=== PATIENT | male | born 1950 | race Hispanic/Latino ===

== ENCOUNTER 2017-02-23 19:05 | Emergency (ER) | payer OTHER ==
[~2017-02-23 19:05] MED LIST: BACL10TA PO; DIAZ5TAB4 PO; IBUP-2077 PO; LOSA100T29 PO; METO-391 PO; SIMV10TA6 PO; TRAM50TA4 PO
[2017-02-23] MEDS ORDERED: ONDANSETRON HCL 4 MG/2 ML VIAL ONE (19:24)
[2017-02-23] MEDS ORDERED: DEXAMETHASONE SOD PHOSPHATE 10MG/ML 1ML VIAL ONE (19:24)
[2017-02-23] MEDS ORDERED: SODIUM CHLORIDE 0.9% 1000ML 1,000 ML IV ONE (19:24)
[2017-02-23 20:18] LABS: BASOPHILS % (AUTO) 0.4 % (0.0-5.0); HEMATOCRIT 41.2 % (42-54); LYMPHOCYTES % (AUTO) 1.8 % (21.0-51.0); MEAN CORPUSCULAR HEMOGLOBIN 27.2 pg (27.0-33.0); MEAN CORPUSCULAR HGB CONC 33.3 g/dL (32.0-36.0); MEAN CORPUSCULAR VOLUME 81.8 fL (79-99); MONOCYTES % (AUTO) 4.7 % (3.0-13.0); NEUTROPHILS % (AUTO) 93.1 % (40.0-77.0); NUCLEATED RED BLOOD CELLS 0.1 % (0.0-0.19); PLATELET COUNT (AUTO) 170 K/uL (130-400); RED BLOOD CELL COUNT(AUTO) 5.04 MIL/uL (4.50-6.20); WHITE BLOOD COUNT (AUTO) 18.4 K/uL (4.8-10.8)
[2017-02-23 20:35] LABS: CREATININE 1.1 mg/dL (0.5-1.5); POTASSIUM 3.8 mmol/L (3.5-5.1)
[2017-02-23 20:39] LABS: ALBUMIN 3.6 g/dL (3.5-5.0); BILIRUBIN,DIRECT 0.1 mg/dL (0.0-0.3); BILIRUBIN,TOTAL 0.7 mg/dL (0.2-1.0); TOTAL PROTEIN, SERUM 7.3 g/dL (6.0-8.3)
== END 2017-02-23 23:00 | disposition home or self-care (01) ==
LOC: EDH 19:05
DX: J20.9 Acute bronchitis, unspecified (principal); E86.0 Dehydration; I10 Essential (primary) hypertension; I25.10 Atherosclerotic heart disease of native coronary artery without angina pectoris
CPT/HCPCS: 36415; 70450; 71020; 80048; 80076; 83690; 85025; 87804 ×2; 93005; 96361; 96374; 96375; 99285; J1100; J2405; J7030

== ENCOUNTER 2017-11-14 21:30 | Emergency (ER) | payer OTHER ==
[~2017-11-14 21:30] MED LIST changes: +LOSA100T20 PO; -LOSA100T29 PO
[2017-11-14 22:37] LABS: APPEARANCE,URINE Clear (CLEAR); BILIRUBIN,URINE Negative (NEGATIVE); COLOR,URINE Yellow (YELLOW); GLUCOSE, URINE (UA) Negative (NEGATIVE); KETONES,URINE Trace mg/dL (NEGATIVE); LEUKOCYTE ESTERASE ,URINE Negative (NEGATIVE); NITRATE,URINE Negative (NEGATIVE); OCCULT BLOOD,URINE Negative (NEGATIVE); PH,URINE 5.5 (5.0-8.0); PROTEIN,URINE Negative (NEGATIVE)
[2017-11-14 22:37] LABS: BASOPHILS % (AUTO) 0.4 % (0.0-5.0); EOSINOPHILS % (AUTO) 1.1 % (0.0-8.0); MEAN CORPUSCULAR HEMOGLOBIN 27.8 pg (27.0-33.0); MEAN CORPUSCULAR HGB CONC 32.7 g/dL (32.0-36.0); MONOCYTES % (AUTO) 9.6 % (3.0-13.0); NEUTROPHILS % (AUTO) 68.9 % (40.0-77.0); PLATELET COUNT (AUTO) 165 K/uL (130-400); RED BLOOD CELL COUNT(AUTO) 5.06 MIL/uL (4.50-6.20); RED CELL DISTRIBUTION WIDTH 14.8 % (11.0-15.5); WHITE BLOOD COUNT (AUTO) 11.9 K/uL (4.8-10.8)
[2017-11-14 23:04] LABS: BILIRUBIN,TOTAL 0.5 mg/dL (0.2-1.0); CREATININE 1.4 mg/dL (0.5-1.5)
[2017-11-14 23:18] LABS: POTASSIUM 4.4 mmol/L (3.5-5.1)
[2017-11-14] MEDS ORDERED: MORPHINE SULFATE 4 MG/1ML SYG ONE (23:49)
[2017-11-14] MEDS ORDERED: ONDANSETRON HCL 4 MG/2 ML VIAL ONE (23:49)
[2017-11-14] MEDS ORDERED: SODIUM CHLORIDE 0.9% 1000ML 1,000 ML IV ONE (23:49)
== END 2017-11-15 00:46 | disposition home or self-care (01) ==
LOC: EDH 21:30
DX: M54.5 Low back pain (principal); R11.0 Nausea; I25.10 Atherosclerotic heart disease of native coronary artery without angina pectoris; I10 Essential (primary) hypertension; Z87.891 Personal history of nicotine dependence; Z79.899 Other long term (current) drug therapy; Z90.49 Acquired absence of other specified parts of digestive tract
CPT/HCPCS: 36415; 74176; 80053; 81003; 83690; 85025; 96374; 96375; 99285; J2270; J2405; J7030

== ENCOUNTER 2018-04-14 09:04 | Emergency (ER) | payer OTHER ==
[~2018-04-14 09:04] MED LIST changes: -LOSA100T20 PO; +LOSA100T58 PO
[2018-04-14] MEDS ORDERED: CEFTRIAXONE SODIUM 1 GM ONE (09:26)
[2018-04-14] MEDS ORDERED: LIDOCAINE HCL-MPF 1% 2ML VIAL ONE (09:26)
[2018-04-14] MEDS ORDERED: ONDANSETRON HCL 4 MG/2 ML VIAL ONE (09:26)
[2018-04-14] MEDS ORDERED: MORPHINE SULFATE 4 MG/1ML SYG ONE (09:27)
[2018-04-14] MEDS ORDERED: SODIUM CHLORIDE 0.9% 500ML 500 ML IV ONE (09:27)
[2018-04-14 09:46] LABS: BASOPHILS % (AUTO) 0.4 % (0.0-5.0); EOSINOPHILS % (AUTO) 0.4 % (0.0-8.0); LYMPHOCYTES % (AUTO) 17.3 % (21.0-51.0); MEAN CORPUSCULAR HEMOGLOBIN 28.1 pg (27.0-33.0); MEAN CORPUSCULAR HGB CONC 33.5 g/dL (32.0-36.0); MEAN CORPUSCULAR VOLUME 83.9 fL (79-99); MONOCYTES % (AUTO) 11.5 % (3.0-13.0); NEUTROPHILS % (AUTO) 70.4 % (40.0-77.0); PLATELET COUNT (AUTO) 154 K/uL (130-400); RED BLOOD CELL COUNT(AUTO) 4.88 MIL/uL (4.50-6.20); RED CELL DISTRIBUTION WIDTH 14.5 % (11.0-15.5); WHITE BLOOD COUNT (AUTO) 10.5 K/uL (4.8-10.8)
[2018-04-14 09:58] LABS: CREATININE 1.2 mg/dL (0.5-1.5); POTASSIUM 3.8 mmol/L (3.5-5.1)
[2018-04-14 10:05] LABS: ALBUMIN 3.8 g/dL (3.5-5.0); BILIRUBIN,TOTAL 0.8 mg/dL (0.2-1.0); TOTAL PROTEIN, SERUM 7.8 g/dL (6.0-8.3)
[2018-04-14 10:16] LABS: APPEARANCE,URINE Clear (CLEAR); BILIRUBIN,URINE Small (NEGATIVE); COLOR,URINE Dark Yellow (YELLOW); GLUCOSE, URINE (UA) Negative (NEGATIVE); KETONES,URINE Negative (NEGATIVE); LEUKOCYTE ESTERASE ,URINE Trace (NEGATIVE); NITRATE,URINE Positive (NEGATIVE); OCCULT BLOOD,URINE Negative (NEGATIVE); PH,URINE 6.5 (5.0-8.0); PROTEIN,URINE Trace (NEGATIVE)
[2018-04-14 10:43] LABS: BACTERIA,URINE None Seen /HPF (None Seen); RBC,URINE None Seen /HPF (0-1); SQUAMOUS EPITHELIAL CELL,UR Rare /HPF (0-2)
[2018-04-14] MEDS ORDERED: KETOROLAC TROMETHAMINE 30MG/ML ONE (11:05)
== END 2018-04-14 11:25 | disposition home or self-care (01) ==
LOC: EDH 09:04
DX: N39.0 Urinary tract infection, site not specified (principal); I10 Essential (primary) hypertension; I25.10 Atherosclerotic heart disease of native coronary artery without angina pectoris; Z90.49 Acquired absence of other specified parts of digestive tract; Z98.890 Other specified postprocedural states; Z87.891 Personal history of nicotine dependence
CPT/HCPCS: 36415; 74176; 80053; 81001; 85025; 87088; 93005; 96372; 96374; 96375; 99284; J0696; J1885; J2270; J2405; J3490; J7040

== ENCOUNTER → 2018-05-09 | Outpatient (CLI) | payer OTHER ==
[~2018-05-09] VITALS: Ht 170.2 cm; Wt 98.4 kg
[~2018-05-09] MED LIST changes: +REGADENOSON 0.4 MG/5 ML PF SYG IVP SCH
== END | disposition home or self-care (01) ==
LOC: RAH 09:08
PROVIDERS: ATTEND Family Medicine
DX: I20.1 Angina pectoris with documented spasm (principal)
CPT/HCPCS: 78452; 93017; 96374; A9500 ×2; J2785

== ENCOUNTER 2018-08-12 21:56 | Emergency (ER) | payer OTHER ==
[~2018-08-12 21:56] MED LIST changes: -REGADENOSON 0.4 MG/5 ML PF SYG IVP SCH
[2018-08-12 23:05] LABS: BASOPHILS % (AUTO) 0.4 % (0.0-5.0); EOSINOPHILS % (AUTO) 0.5 % (0.0-8.0); HEMATOCRIT 41.5 % (42-54); LYMPHOCYTES % (AUTO) 19.6 % (21.0-51.0); MEAN CORPUSCULAR HEMOGLOBIN 29.3 pg (27.0-33.0); MEAN CORPUSCULAR HGB CONC 34.1 g/dL (32.0-36.0); MEAN CORPUSCULAR VOLUME 85.8 fL (79-99); MONOCYTES % (AUTO) 8.6 % (3.0-13.0); NEUTROPHILS % (AUTO) 70.9 % (40.0-77.0); PLATELET COUNT (AUTO) 145 K/uL (130-400); RED BLOOD CELL COUNT(AUTO) 4.84 MIL/uL (4.50-6.20); RED CELL DISTRIBUTION WIDTH 14.7 % (11.0-15.5); WHITE BLOOD COUNT (AUTO) 11.1 K/uL (4.8-10.8)
[2018-08-12 23:11] LABS: CREATININE 1.3 mg/dL (0.5-1.5); POTASSIUM 4.6 mmol/L (3.5-5.1)
[2018-08-12 23:12] LABS: INR 0.96 (0.85-1.15); PARTIAL THROMBOPLASTIN TIME 24.7 SEC (26.3-35.5); PROTHROMBIN TIME 10.1 SEC (9.6-11.6)
[2018-08-12 23:15] LABS: ALBUMIN 3.9 g/dL (3.5-5.0); BILIRUBIN,TOTAL 0.3 mg/dL (0.2-1.0); TOTAL PROTEIN, SERUM 6.9 g/dL (6.0-8.3)
[2018-08-13] MEDS ORDERED: ACETAMINOPHEN EXTRA STRENGTH 500 MG TABLET ONE (00:18)
[2018-08-13 00:31] LABS: APPEARANCE,URINE Clear (CLEAR); BILIRUBIN,URINE Negative (NEGATIVE); COLOR,URINE Yellow (YELLOW); GLUCOSE, URINE (UA) Negative (NEGATIVE); KETONES,URINE Negative (NEGATIVE); LEUKOCYTE ESTERASE ,URINE Negative (NEGATIVE); NITRATE,URINE Negative (NEGATIVE); OCCULT BLOOD,URINE Negative (NEGATIVE); PH,URINE 6.5 (5.0-8.0); PROTEIN,URINE Negative (NEGATIVE); UROBILINOGEN,URINE 0.2 mg/dL (0.2-1.0)
[2018-08-13] MEDS ORDERED: SODIUM CHLORIDE 0.9% 500ML 500 ML IV ONE (02:00)
[2018-08-13] MEDS ORDERED: LABETALOL 20 MG/4 ML DISP.SYRIN IV ONE (02:01)
== END 2018-08-13 03:47 | disposition home or self-care (01) ==
LOC: EDH 21:56
DX: G44.89 Other headache syndrome (principal); I10 Essential (primary) hypertension; I25.10 Atherosclerotic heart disease of native coronary artery without angina pectoris; Z90.49 Acquired absence of other specified parts of digestive tract
CPT/HCPCS: 36415; 70450; 80053; 81003; 82550; 84484; 85025; 85610; 85651; 85730; 93005; 96374; 99285; J7040

== ENCOUNTER 2018-12-26 22:53 | Emergency (ER) | payer OTHER ==
[2018-12-26 23:47] LABS: BASOPHILS % (AUTO) 0.9 % (0.0-5.0); EOSINOPHILS % (AUTO) 0.8 % (0.0-8.0); HEMATOCRIT 40.3 % (42-54); LYMPHOCYTES % (AUTO) 22.2 % (21.0-51.0); MEAN CORPUSCULAR HEMOGLOBIN 29.6 pg (27.0-33.0); MEAN CORPUSCULAR HGB CONC 34.5 g/dL (32.0-36.0); MEAN CORPUSCULAR VOLUME 85.6 fL (79-99); NEUTROPHILS % (AUTO) 64.1 % (40.0-77.0); PLATELET COUNT (AUTO) 119 K/uL (130-400); RED BLOOD CELL COUNT(AUTO) 4.71 MIL/uL (4.50-6.20); RED CELL DISTRIBUTION WIDTH 14.1 % (11.0-15.5); WHITE BLOOD COUNT (AUTO) 8.4 K/uL (4.8-10.8)
[2018-12-26] MEDS ORDERED: MAG HYDROX/AL HYDROX/SIMETH ES 30 ML SUSP UDCUP ONE (23:48)
[2018-12-26] MEDS ORDERED: FAMOTIDINE/PF 20 MG/2 ML VIAL IV ONE (23:48)
[2018-12-26] MEDS ORDERED: LIDOCAINE HCL 2% VISCOUS 15 ML UDCUP ONE (23:48)
[2018-12-27 00:01] LABS: CREATININE 1.4 mg/dL (0.5-1.5); POTASSIUM 3.9 mmol/L (3.5-5.1)
[2018-12-27] MEDS ORDERED: KETOROLAC TROMETHAMINE 15MG/ML ONE (00:04)
[2018-12-27] MEDS ORDERED: SODIUM CHLORIDE 0.9% 1000ML 1,000 ML IV ONE (00:05)
[2018-12-27 00:06] LABS: ALBUMIN 3.7 g/dL (3.5-5.0); BILIRUBIN,TOTAL 0.3 mg/dL (0.2-1.0); TOTAL PROTEIN, SERUM 6.8 g/dL (6.0-8.3)
== END 2018-12-26 23:36 | disposition home or self-care (01) ==
LOC: EDH 22:53
DX: R51 Headache (principal); H66.92 Otitis media, unspecified, left ear; M54.6 Pain in thoracic spine; I10 Essential (primary) hypertension; M26.629 Arthralgia of temporomandibular joint, unspecified side; I25.10 Atherosclerotic heart disease of native coronary artery without angina pectoris; Z90.49 Acquired absence of other specified parts of digestive tract; Z95.2 Presence of prosthetic heart valve; Z96.659 Presence of unspecified artificial knee joint
CPT/HCPCS: 36415; 70450; 80053; 84484; 85025; 93005; 96365; 96375; 99285; J3490; J1885; J7030

== ENCOUNTER 2019-03-03 13:53 | Emergency (ER) | payer OTHER ==
[~2019-03-03 13:53] MED LIST changes: -SIMV10TA6 PO; +SIMV10TA97 PO
[2019-03-03] MEDS ORDERED: METHYLPREDNISOLONE SOD SUCC 125MG/2ML VIAL ONE (14:26)
[2019-03-03] MEDS ORDERED: IPRATROPIUM/ALBUTEROL SULFATE 3 ML SOLUTION IH ONE (14:49)
[2019-03-04] MEDS ORDERED: LOSA50TA64 PO (18:46)
== END 2019-03-03 16:00 | disposition home or self-care (01) ==
LOC: EDH 13:53
DX: J20.9 Acute bronchitis, unspecified (principal); I25.10 Atherosclerotic heart disease of native coronary artery without angina pectoris; I10 Essential (primary) hypertension; Z90.49 Acquired absence of other specified parts of digestive tract; Z98.890 Other specified postprocedural states; Z87.891 Personal history of nicotine dependence
CPT/HCPCS: 71046; 87804 ×2; 94640; 96372; 99285; J2930

== ENCOUNTER 2019-03-04 07:42 | Observation (INO) | payer OTHER ==
[~2019-03-04] VITALS: Ht 170.2 cm; Wt 107.3 kg
[2019-03-04] MEDS ORDERED: ONDANSETRON HCL 4 MG/2 ML VIAL ONE (08:27)
[2019-03-04 08:28] LABS: BASOPHILS % (AUTO) 0.1 % (0.0-5.0); HEMATOCRIT 44.2 % (42-54); LYMPHOCYTES % (AUTO) 3.9 % (21.0-51.0); MEAN CORPUSCULAR HEMOGLOBIN 27.8 pg (27.0-33.0); MEAN CORPUSCULAR VOLUME 84.2 fL (79-99); MONOCYTES % (AUTO) 3.5 % (3.0-13.0); NEUTROPHILS % (AUTO) 91.9 % (40.0-77.0); PLATELET COUNT (AUTO) 209 K/uL (130-400); RED BLOOD CELL COUNT(AUTO) 5.25 MIL/uL (4.50-6.20); RED CELL DISTRIBUTION WIDTH 13.6 % (11.0-15.5); WHITE BLOOD COUNT (AUTO) 20.2 K/uL (4.8-10.8)
[2019-03-04] MEDS ORDERED: MORPHINE SULFATE 2 MG/ML 1ML SYG ONE (08:28)
[2019-03-04] MEDS ORDERED: LIDOCAINE 5% TOPICAL PATCH TP ONE (08:28)
[2019-03-04] MEDS ORDERED: SODIUM CHLORIDE 0.9% 500ML 500 ML IV ONE ×2 (08:30→09:25)
[2019-03-04 08:39] LABS: CREATININE 1.5 mg/dL (0.5-1.5); POTASSIUM 4.3 mmol/L (3.5-5.1)
[2019-03-04 08:43] LABS: BILIRUBIN,DIRECT 0.1 mg/dL (0.0-0.3); BILIRUBIN,TOTAL 0.5 mg/dL (0.2-1.0); TOTAL PROTEIN, SERUM 7.8 g/dL (6.0-8.3)
[2019-03-04 08:51] LABS: PARTIAL THROMBOPLASTIN TIME 25.5 SEC (26.3-35.5); PROTHROMBIN TIME 10.5 SEC (9.6-11.6)
[2019-03-04 09:15] LABS: B-TYPE NATRIURETIC PEPTIDE 90 pg/mL (0-100)
[2019-03-04] MEDS ORDERED: INSULIN HUMULIN R 100 UNIT/ML 3ML ONE (09:24)
[2019-03-04] MEDS ORDERED: SODIUM CHLORIDE 0.9% 100 ML IV ONE (10:44)
[2019-03-04] MEDS ORDERED: CEFTRIAXONE SODIUM 1 GM ONE (10:44)
[2019-03-04 11:58] LABS: APPEARANCE,URINE CLOUDY (CLEAR); BILIRUBIN,URINE NEGATIVE (NEGATIVE); COLOR,URINE YELLOW (YELLOW); GLUCOSE, URINE (UA) >=1000 mg/dL (NEGATIVE); KETONES,URINE NEGATIVE (NEGATIVE); LEUKOCYTE ESTERASE ,URINE TRACE (NEGATIVE); NITRATE,URINE NEGATIVE (NEGATIVE); OCCULT BLOOD,URINE TRACE-INTACT (NEGATIVE); PROTEIN,URINE NEGATIVE (NEGATIVE); UROBILINOGEN,URINE 0.2 mg/dL (0.2-1.0)
[2019-03-04 12:27] LABS: BACTERIA,URINE Rare /HPF (None Seen); RBC,URINE 0-1 /HPF (0-1); SQUAMOUS EPITHELIAL CELL,UR Rare /HPF (0-2); WBC,URINE >100 /HPF (0-1)
[2019-03-04] MEDS: LACTATED RINGERS 1000ML 1,000 ML IV SCH ×2 (12:54→22:54)
[2019-03-04] MEDS ORDERED: POTASSIUM CHLORIDE 20MEQ/100ML 100 ML IV PRN (13:00)
[2019-03-04] MEDS ORDERED: ACETAMINOPHEN 325 MG TAB PO PRN ×2 (13:00)
[2019-03-04] MEDS ORDERED: LIDOCAINE HCL-MPF 1% 2ML VIAL IV PRN (13:00)
[2019-03-04] MEDS ORDERED: POTASSIUM CHLORIDE 10% ELIXIR 20 MEQ/15 ML UDCUP PO PRN (13:00)
[2019-03-04] MEDS: CEFTRIAXONE SODIUM 1 GM IV SCH (13:00)
[2019-03-04] MEDS ORDERED: ONDANSETRON HCL 4 MG/2 ML VIAL IV PRN (13:00)
[2019-03-04] MEDS ORDERED: GLUCAGON 1MG KIT 1 MG ML IM PRN (13:00)
[2019-03-04] MEDS ORDERED: DEXTROSE 50%-WATER 50 ML DISP.SYRIN IV PRN (13:00)
[2019-03-04] MEDS ORDERED: GUAIFENESIN-DM 200/20 MG 10 ML PO PRN (13:00)
[2019-03-04] MEDS ORDERED: NITROGLYCERIN 0.4 MG SL TAB SL PRN (13:00)
[2019-03-04] MEDS: DOXYCYCLINE 100MG+NS 250ML 250 ML IV SCH (13:00)
[2019-03-04] MEDS ORDERED: POTASSIUM CHLORIDE 20 MEQ ERTAB PO PRN (13:00)
[2019-03-04] MEDS ORDERED: LACTULOSE 20 GM/30 ML UDCUP PO PRN (13:00)
[2019-03-04] MEDS ORDERED: BENZONATATE 100 MG CAPSULE PO SCH (14:00)
[2019-03-04] MEDS ORDERED: BENZONATATE 100 MG CAPSULE PO ONE (14:28)
[2019-03-04] MEDS ORDERED: COMPOUND PO MISCELLANEOUS 1 EACH MISC MISC PRN (15:00)
[2019-03-04 15:40] VITALS: BP 188/101
[2019-03-04] MEDS: HYDROCODONE/ACETAMINOPHEN 5/325 MG TAB PO PRN ×2 (17:48→22:17)
[2019-03-04] MEDS: INSULIN HUMULIN R 100 UNIT/ML 3ML SQ SCH ×2 (17:53→20:30)
[2019-03-04] MEDS ORDERED: LOSA50TA64 PO (18:46)
[2019-03-04] MEDS: IPRATROPIUM/ALBUTEROL SULFATE 3 ML SOLUTION IH SCH ×2 (18:58→23:40)
[2019-03-04] MEDS ORDERED: HYDRALAZINE HCL 20 MG/ML VIAL IV PRN (19:15)
[2019-03-04] MEDS ORDERED: LIDOCAINE HCL 2% VISCOUS 30 ML, MAG HYDROX/AL HYDROX/SIMETH 30 ML, BELLADONNA-PHENOBARB... PO ONE ×3 (19:15)
[2019-03-04] MEDS ORDERED: LIDOCAINE HCL 2% VISCOUS 30 ML, MAG HYDROX/AL HYDROX/SIMETH 30 ML, DICYCLOMINE HCL 20 MG PO ONE ×6 (19:30)
[2019-03-04] MEDS: [UNRECOGNIZED DRUG - MIXTURE] PO SCH ×3 (20:00)
[2019-03-04] MEDS: FAMOTIDINE 20MG TAB 20 MG TAB PO SCH (20:00)
[2019-03-04] MEDS: BENZONATATE 100 MG CAPSULE PO SCH (20:04)
[2019-03-04 20:24] VITALS: BP 138/75
[2019-03-04] MEDS ORDERED: OSELTAMIVIR PHOSPHATE 75 MG CAP PO SCH (21:00)
[2019-03-05] MEDS ORDERED: IPRATROPIUM/ALBUTEROL SULFATE 3 ML SOLUTION IH SCH
[2019-03-05] MEDS: DOXYCYCLINE 100MG+NS 250ML 250 ML IV SCH ×2 (00:01→12:47)
[2019-03-05 00:28] VITALS: BP 174/76
[2019-03-05] MEDS: LACTATED RINGERS 1000ML 1,000 ML IV SCH ×2 (04:18→18:54)
[2019-03-05 04:28] VITALS: BP 152/79
[2019-03-05 06:13] LABS: BASOPHILS % (AUTO) 0.3 % (0.0-5.0); EOSINOPHILS % (AUTO) 0.1 % (0.0-8.0); HEMATOCRIT 43.5 % (42-54); LYMPHOCYTES % (AUTO) 15.7 % (21.0-51.0); MEAN CORPUSCULAR HEMOGLOBIN 27.8 pg (27.0-33.0); MONOCYTES % (AUTO) 9.2 % (3.0-13.0); NEUTROPHILS % (AUTO) 73.8 % (40.0-77.0); PLATELET COUNT (AUTO) 189 K/uL (130-400); RED CELL DISTRIBUTION WIDTH 13.9 % (11.0-15.5); WHITE BLOOD COUNT (AUTO) 14.9 K/uL (4.8-10.8)
[2019-03-05] MEDS: INSULIN HUMULIN R 100 UNIT/ML 3ML SQ SCH ×4 (06:22→21:41)
[2019-03-05 06:27] LABS: CREATININE 1.4 mg/dL (0.5-1.5); POTASSIUM 4.9 mmol/L (3.5-5.1)
[2019-03-05] MEDS: IPRATROPIUM/ALBUTEROL SULFATE 3 ML SOLUTION IH SCH ×3 (06:33→19:01)
[2019-03-05 07:08] LABS: HEMOGLOBIN A1C 7.6 % (4.0-6.0)
[2019-03-05 07:30] VITALS: BP 165/77
[2019-03-05] MEDS ORDERED: SIMETHICONE 80 MG TAB.CHEW PO SCH (08:30)
[2019-03-05] MEDS: [UNRECOGNIZED DRUG - MIXTURE] PO SCH ×6 (08:42→21:52)
[2019-03-05] MEDS: ENOXAPARIN SODIUM 30 MG/0.3 ML SQ SCH (08:42)
[2019-03-05] MEDS: BENZONATATE 100 MG CAPSULE PO SCH ×3 (08:42→21:52)
[2019-03-05] MEDS ORDERED: MAGNESIUM CITRATE 296 ML SOLUTION PO SCH (09:30)
[2019-03-05 11:00] VITALS: BP 176/86
[2019-03-05] MEDS: CEFTRIAXONE SODIUM 1 GM IV SCH (12:47)
--- NOTE | 2019-03-05 15:47 | NUR ---
RD NOTIFICATION DX: NEW ONSET DM. DIET: 75GMCCD. LABS REVIEWED. MEDS REVIEWED. SKIN IS INTACT. PT STATED HAVING CONSTIPATION AND REQUESTED PRUNE JUICE. PO INTAKE 100% AND HAS GOOD APPETITE. RD PROVIDED DM DIET AND NUTRITION EDUCATION- PT VERBALIZED UNDERSTANDING. EDUCATION MATERIALS WERE PROVIDED. RD ADDED PRUNE JUICE TO DIET ORDER DM NUTRITION EDUCATION COMPLETED Addendum: 03/05/19 at [address] Amended: Links added.
--- NOTE | 2019-03-05 15:50 | NUR ---
NUTRITION EDUCATION COMPLETED RD PROVIDED DM DIET AND NUTRITION EDUCATION- PT VERBALIZED UNDERSTANDING. EDUCATION MATERIALS WERE PROVIDED. Addendum: 03/05/19 at [address] Amended: Links added.
[2019-03-05 16:00] VITALS: BP 164/80
[2019-03-05] MEDS ORDERED: METF500S7 PO (16:33)
[2019-03-05] MEDS ORDERED: LEVO500T2 PO (16:33)
[2019-03-05] MEDS: HYDROCODONE/ACETAMINOPHEN 5/325 MG TAB PO PRN (18:33)
[2019-03-05 20:16] VITALS: BP 144/79
[2019-03-05] MEDS: FAMOTIDINE 20MG TAB 20 MG TAB PO SCH (21:52)
[2019-03-06] MEDS: DOXYCYCLINE 100MG+NS 250ML 250 ML IV SCH ×2 (00:13→12:16)
[2019-03-06 00:16] VITALS: BP 143/80
[2019-03-06] MEDS: IPRATROPIUM/ALBUTEROL SULFATE 3 ML SOLUTION IH SCH ×2 (00:41→06:14)
[2019-03-06 04:20] VITALS: BP 162/87
[2019-03-06] MEDS: LACTATED RINGERS 1000ML 1,000 ML IV SCH ×2 (04:57→15:41)
[2019-03-06] MEDS: HYDROCODONE/ACETAMINOPHEN 5/325 MG TAB PO PRN (04:58)
[2019-03-06] MEDS: INSULIN HUMULIN R 100 UNIT/ML 3ML SQ SCH ×3 (05:15→16:12)
[2019-03-06 06:12] LABS: BASOPHILS % (AUTO) 0.5 % (0.0-5.0); EOSINOPHILS % (AUTO) 0.6 % (0.0-8.0); HEMATOCRIT 43.4 % (42-54); LYMPHOCYTES % (AUTO) 21.4 % (21.0-51.0); MEAN CORPUSCULAR HEMOGLOBIN 27.7 pg (27.0-33.0); MEAN CORPUSCULAR VOLUME 86.5 fL (79-99); MONOCYTES % (AUTO) 9.6 % (3.0-13.0); NEUTROPHILS % (AUTO) 66.3 % (40.0-77.0); PLATELET COUNT (AUTO) 172 K/uL (130-400); RED BLOOD CELL COUNT(AUTO) 5.02 MIL/uL (4.50-6.20); WHITE BLOOD COUNT (AUTO) 10.8 K/uL (4.8-10.8)
[2019-03-06 06:33] LABS: CREATININE 1.3 mg/dL (0.5-1.5); POTASSIUM 4.3 mmol/L (3.5-5.1)
[2019-03-06 08:21] VITALS: BP 152/84
[2019-03-06] MEDS ORDERED: LOSARTAN 50 MG TABLET PO SCH (09:00)
[2019-03-06] MEDS: BENZONATATE 100 MG CAPSULE PO SCH ×2 (09:25→15:39)
[2019-03-06] MEDS: ENOXAPARIN SODIUM 30 MG/0.3 ML SQ SCH (09:26)
[2019-03-06] MEDS: [UNRECOGNIZED DRUG - MIXTURE] PO SCH ×3 (09:36)
[2019-03-06] MEDS ORDERED: IPRATROPIUM 0.5 MG/2.5 ML INH IH ONE (10:44)
[2019-03-06] MEDS ORDERED: ALBUTEROL SULFATE 0.083% 2.5 MG/3 ML INH IH ONE (10:45)
[2019-03-06 11:00] VITALS: BP 171/88
--- NOTE | 2019-03-06 12:00 | NUR ---
INITIAL MET W PT, ALONE, STATES LIVES W GIRL FRIEND LAILA ON [address] WHO WILL PROVIDE TRANSPORT HOME . NO DME , NO RHIANNON, AG[place], RETIRED, DCP IS HOME SPOKE TO [place] RE PATIENT, CONFIRMS HE WILL BE GOING HOME AND THAT THEY SAW THE CT REPORT TYRELL PERERA TODAY Addendum: 03/06/19 at 1701 by DARLING REYES RN CM Amended: Links added.
[2019-03-06] MEDS: CEFTRIAXONE SODIUM 1 GM IV SCH (12:17)
[2019-03-06 16:33] VITALS: BP 152/89
--- NOTE | 2019-03-06 18:40 | NUR ---
Discharge, Patient overall discharge instruction were given including taking medications as prescribed, checking blood sugar regularly, follow up appointments. patient understood instructions, IV was removed and patient was wheeled down to private vehicle being driven by significant other. Patient left in no distress within baseline status.
== END 2019-03-06 18:57 | disposition home or self-care (01) ==
LOC: EDH 07:42 → EDHIP 10:27 → 4DH 15:19
PROVIDERS: ADMIT Internal Medicine Critical Care Medicine; ATTEND Internal Medicine Critical Care Medicine
DX: S22.39XA Fracture of one rib, unspecified side, initial encounter for closed fracture (principal); A41.9 Sepsis, unspecified organism; N39.0 Urinary tract infection, site not specified; N17.9 Acute kidney failure, unspecified; I12.9 Hypertensive chronic kidney disease with stage 1 through stage 4 chronic kidney disease, or unspecified chronic kidney disease; N18.9 Chronic kidney disease, unspecified; E78.5 Hyperlipidemia, unspecified; I25.10 Atherosclerotic heart disease of native coronary artery without angina pectoris; E66.9 Obesity, unspecified; Z90.49 Acquired absence of other specified parts of digestive tract; Z95.2 Presence of prosthetic heart valve; E11.22 Type 2 diabetes mellitus with diabetic chronic kidney disease; K76.0 Fatty (change of) liver, not elsewhere classified; Z79.899 Other long term (current) drug therapy; Z96.659 Presence of unspecified artificial knee joint; E11.65 Type 2 diabetes mellitus with hyperglycemia; E86.0 Dehydration; D72.829 Elevated white blood cell count, unspecified; Z68.37 Body mass index [BMI] 37.0-37.9, adult; X58.XXXA Exposure to other specified factors, initial encounter; Y93.89 Activity, other specified; Y92.89 Other specified places as the place of occurrence of the external cause; Z79.84 Long term (current) use of oral hypoglycemic drugs
CPT/HCPCS: 36415 ×3; 71045; 71046; 71101; 71250; 76700; 80048 ×3; 80076; 81001; 82150; 82550; 82948 ×9; 83036; 83605 ×2; 83690; 83880; 84145; 84484; 85025 ×3; 85610; 85730; 87040 ×2; 87088; 93005; 94640 ×8; 94664; 96361 ×2; 96365; 96366 ×2; 96372 ×3; 96375 ×2; 96376; 99284; G0378 ×15; J0360; J0696 ×3; J1650 ×2; J1815 ×9; J2405; J3490 ×3; J7040 ×2; J7120 ×5

== ENCOUNTER 2019-03-09 08:39 | Emergency (ER) | payer OTHER ==
[~2019-03-09 08:39] MED LIST changes: -BACL10TA PO; -DIAZ5TAB4 PO; -IBUP-2077 PO; +LEVO500T2 PO; -LOSA100T58 PO; +LOSA50TA64 PO; +METF500S7 PO; -METO-391 PO; -SIMV10TA97 PO; -TRAM50TA4 PO
[2019-03-09 08:54] LABS: BASOPHILS % (AUTO) 0.3 % (0.0-5.0); EOSINOPHILS % (AUTO) 0.3 % (0.0-8.0); HEMATOCRIT 44.4 % (42-54); LYMPHOCYTES % (AUTO) 13.5 % (21.0-51.0); MEAN CORPUSCULAR HEMOGLOBIN 27.5 pg (27.0-33.0); MONOCYTES % (AUTO) 5.2 % (3.0-13.0); NEUTROPHILS % (AUTO) 78.6 % (40.0-77.0); PLATELET COUNT (AUTO) 210 K/uL (130-400); RED BLOOD CELL COUNT(AUTO) 5.16 MIL/uL (4.50-6.20); RED CELL DISTRIBUTION WIDTH 13.9 % (11.0-15.5)
[2019-03-09] MEDS ORDERED: ASPIRIN 325 MG TABLET ONE (09:14)
[2019-03-09 09:15] LABS: B-TYPE NATRIURETIC PEPTIDE 14 pg/mL (0-100)
[2019-03-09 09:16] LABS: CREATININE 1.8 mg/dL (0.5-1.5); POTASSIUM 4.3 mmol/L (3.5-5.1)
[2019-03-09 09:22] LABS: ALBUMIN 3.3 g/dL (3.5-5.0); BILIRUBIN,TOTAL 0.4 mg/dL (0.2-1.0); TOTAL PROTEIN, SERUM 6.7 g/dL (6.0-8.3)
[2019-03-09] MEDS ORDERED: IPRATROPIUM/ALBUTEROL SULFATE 3 ML SOLUTION IH ONE (09:35)
== END 2019-03-09 11:32 | disposition home or self-care (01) ==
LOC: EDH 08:39
DX: R07.89 Other chest pain (principal); R05 Cough; I10 Essential (primary) hypertension; I25.10 Atherosclerotic heart disease of native coronary artery without angina pectoris; Z90.49 Acquired absence of other specified parts of digestive tract
CPT/HCPCS: 36415; 71045; 80053; 82550; 82948; 83880; 84484; 85025; 93005; 94640

== ENCOUNTER → 2019-03-24 | Outpatient (CLI) | payer OTHER | END | disposition home or self-care (01) | LOC: OIH 10:24 | PROVIDERS: ATTEND Family Medicine | DX: J44.9 Chronic obstructive pulmonary disease, unspecified (principal); M47.814 Spondylosis without myelopathy or radiculopathy, thoracic region | CPT/HCPCS: 71046 ==

== ENCOUNTER 2020-03-01 12:28 | Inpatient (IN) | payer OTHER ==
[~2020-03-01] VITALS: Ht 170.2 cm; Wt 104.3 kg
[2020-03-01] MEDS ORDERED: IBUPROFEN 400 MG TABLET ONE (12:52)
[2020-03-01] MEDS ORDERED: SODIUM CHLORIDE 0.9% 1000ML 1,000 ML IV ONE (12:53)
[2020-03-01] MEDS ORDERED: IBUPROFEN 200 MG TAB ONE (12:53)
[2020-03-01 13:11] LABS: BASOPHILS % (AUTO) 0.2 % (0.0-5.0); HEMATOCRIT 44.1 % (42-54); MEAN CORPUSCULAR HEMOGLOBIN 26.7 pg (27.0-33.0); MEAN CORPUSCULAR HGB CONC 32.9 g/dL (32.0-36.0); MEAN CORPUSCULAR VOLUME 81.2 fL (79-99); MONOCYTES % (AUTO) 5.8 % (3.0-13.0); NEUTROPHILS % (AUTO) 89.8 % (40.0-77.0); PLATELET COUNT (AUTO) 255 K/uL (130-400); RED BLOOD CELL COUNT(AUTO) 5.43 MIL/uL (4.50-6.20); RED CELL DISTRIBUTION WIDTH 14.4 % (11.0-15.5); WHITE BLOOD COUNT (AUTO) 11.9 K/uL (4.8-10.8)
[2020-03-01 13:15] LABS: ABG HCO3 19.8 mmol/L (21.0-28.0); ABG OXYGEN SATURATION 92.8 % (95.0-99.0); ABG PCO2 36 mmHg (35-48)
[2020-03-01 13:20] LABS: INR 1.18 (0.85-1.15); PROTHROMBIN TIME 12.4 SEC (9.6-11.6)
[2020-03-01 13:21] LABS: PARTIAL THROMBOPLASTIN TIME 32.5 SEC (26.3-35.5)
[2020-03-01] MEDS ORDERED: DEXAMETHASONE SOD PHOSPHATE 10MG/ML 1ML VIAL ONE (13:24)
[2020-03-01] MEDS ORDERED: ALBUTEROL INHALER 90MCG/INH IH ONE (13:24)
[2020-03-01] MEDS ORDERED: AZITHROMYCIN 500MG+NS 250ML 250 ML IV ONE (13:26)
[2020-03-01] MEDS ORDERED: CEFTRIAXONE SODIUM 1 GM ONE (13:26)
[2020-03-01 13:34] LABS: CARBON DIOXIDE 19 mmol/L (21-32); CHLORIDE 91 mmol/L (101-111); CREATININE 2.4 mg/dL (0.5-1.5); GLOMERULAR FILTR. RATE CALC 29 mL/min (>60); SODIUM SERUM 126 mmol/L (136-145); UREA NITROGEN, BLOOD 32 mg/dL (7-18)
[2020-03-01 13:35] LABS: GLUCOSE,RANDOM 493 mg/dL (70-105)
[2020-03-01 13:40] LABS: ASPARTATE AMINOTRANSFERASE 62 U/L (10-37); BILIRUBIN,TOTAL 0.6 mg/dL (0.2-1.0)
[2020-03-01 13:41] LABS: ALANINE AMINOTRANSFERASE 46 U/L (12-78); CREATINE KINASE, TOTAL 254 U/L (21-232); MYOGLOBIN 303 ng/mL (10-92); TROPONIN I < 0.04 ng/mL (0.00-0.06)
[2020-03-01 13:42] LABS: TOTAL PROTEIN, SERUM 7.7 g/dL (6.0-8.3)
[2020-03-01 13:53] LABS: ALBUMIN 2.2 g/dL (3.5-5.0)
[2020-03-01] MEDS ORDERED: MAGNESIUM 2GM PREMIX 50ML 50 ML IV PRN (14:15)
[2020-03-01] MEDS ORDERED: DEXTROSE 50%-WATER 50 ML DISP.SYRIN IV PRN (14:15)
[2020-03-01] MEDS ORDERED: ONDANSETRON HCL 4 MG/2 ML VIAL IVP PRN (14:15)
[2020-03-01] MEDS: SODIUM CHLORIDE 0.9% 1000ML 1,000 ML IV SCH (14:15)
[2020-03-01] MEDS ORDERED: ACETAMINOPHEN 650 MG SUPPOSITORY RC PRN (14:15)
[2020-03-01] MEDS ORDERED: GLUCAGON 1MG KIT 1 MG ML IM PRN (14:15)
[2020-03-01 17:20] LABS: APPEARANCE,URINE Cloudy (CLEAR); BILIRUBIN,URINE Negative (NEGATIVE); COLOR,URINE Yellow (YELLOW); GLUCOSE, URINE (UA) >=1000 mg/dL (NEGATIVE); KETONES,URINE Negative (NEGATIVE); LEUKOCYTE ESTERASE ,URINE Negative (NEGATIVE); NITRATE,URINE Negative (NEGATIVE); OCCULT BLOOD,URINE Moderate (NEGATIVE); PH,URINE 5.5 (5.0-8.0); PROTEIN,URINE POS 2+ mg/dL (NEGATIVE)
[2020-03-01 17:38] LABS: BACTERIA,URINE Rare /HPF (None Seen); RBC,URINE None Seen /HPF (0-1); WBC,URINE 0-1 /HPF (0-1)
[2020-03-01 17:39] LABS: YEAST,URINE BUDDING Rare /HPF (None Seen)
[2020-03-01] MEDS ORDERED: IPRATROPIUM 0.5 MG/2.5 ML INH IH SCH (18:00)
[2020-03-01] MEDS ORDERED: FAMOTIDINE/PF 20 MG/2 ML VIAL IV ONE (21:02)
[2020-03-02] MEDS ORDERED: INSULIN HUMULIN R 100 UNIT/ML 3ML ONE ×4 (00:06→17:45)
[2020-03-02] MEDS: SODIUM CHLORIDE 0.9% 1000ML 1,000 ML IV SCH ×3 (00:15→20:15)
[2020-03-02 03:11] LABS: ABG BASE EXCESS -8.9 mmol/L (-2.0-3.0); ABG HCO3 16.5 mmol/L (21.0-28.0); ABG OXYGEN SATURATION 86.1 % (95.0-99.0); ABG PCO2 35 mmHg (35-48)
[2020-03-02 05:47] LABS: ALBUMIN 2.2 g/dL (3.5-5.0); BASOPHILS % (AUTO) 0.2 % (0.0-5.0); BILIRUBIN,TOTAL 0.5 mg/dL (0.2-1.0); HEMATOCRIT 42.6 % (42-54); LYMPHOCYTES % (AUTO) 2.3 % (21.0-51.0); MAGNESIUM 2.2 mg/dL (1.80-2.40); MEAN CORPUSCULAR HEMOGLOBIN 26.8 pg (27.0-33.0); MEAN CORPUSCULAR HGB CONC 32.4 g/dL (32.0-36.0); MEAN CORPUSCULAR VOLUME 82.7 fL (79-99); MONOCYTES % (AUTO) 3.8 % (3.0-13.0); NEUTROPHILS % (AUTO) 92.7 % (40.0-77.0); PLATELET COUNT (AUTO) 253 K/uL (130-400); POTASSIUM 4.4 mmol/L (3.5-5.1); RED BLOOD CELL COUNT(AUTO) 5.15 MIL/uL (4.50-6.20); RED CELL DISTRIBUTION WIDTH 14.5 % (11.0-15.5); TOTAL PROTEIN, SERUM 7.1 g/dL (6.0-8.3); WHITE BLOOD COUNT (AUTO) 12.8 K/uL (4.8-10.8)
[2020-03-02] MEDS: INSULIN HUMULIN R 100 UNIT/ML 3ML SQ SCH ×4 (06:00→18:00)
[2020-03-02 06:50] LABS: CRP QUANTITATIVE 552.3 mg/L (0.00-9.0)
[2020-03-02] MEDS ORDERED: ENOXAPARIN SODIUM 40 MG/0.4 ML SYRINGE SQ ONE (07:41)
[2020-03-02] MEDS ORDERED: DEXAMETHASONE SOD PHOSPHATE 10MG/ML 1ML VIAL ONE (07:41)
[2020-03-02] MEDS ORDERED: CEFTRIAXONE SODIUM 1 GM ONE (07:41)
[2020-03-02] MEDS ORDERED: FAMOTIDINE/PF 20 MG/2 ML VIAL IV ONE (07:42)
[2020-03-02] MEDS: FAMOTIDINE/PF 20 MG/2 ML VIAL IV SCH (09:00)
[2020-03-02] MEDS ORDERED: DEXAMETHASONE 10MG/ML 1ML VIAL 6 MG in SODIUM CHLORIDE 0.9% 50 ML IV SCH (09:00)
[2020-03-02] MEDS: DEXAMETHASONE SOD PHOSPHATE 4 MG/ML 1ML VIAL IVP SCH (09:00)
[2020-03-02] MEDS: CEFTRIAXONE SODIUM 1 GM IVP SCH (09:00)
[2020-03-02] MEDS: ENOXAPARIN SODIUM 40 MG/0.4 ML SYRINGE SQ SCH (09:00)
[2020-03-02] MEDS: DOXYCYCLINE 100MG+NS 250ML 250 ML IV SCH ×2 (11:00→23:00)
[2020-03-02] MEDS ORDERED: DOXYCYCLINE 100MG+NS 250ML 250 ML IV ONE (11:06)
[2020-03-02] MEDS ORDERED: AZITHROMYCIN 500MG+NS 250ML 250 ML IV SCH (13:00)
[2020-03-02] MEDS ORDERED: ACETAMINOPHEN 325 MG TAB ONE (17:29)
[2020-03-02] MEDS ORDERED: SODIUM CHLORIDE 0.9% 1000ML 1,000 ML IV ONE (17:58)
[2020-03-02] MEDS ORDERED: LABETALOL 20 MG/4 ML DISP.SYRIN IV ONE ×2 (18:16→19:50)
[2020-03-02] MEDS ORDERED: FUROSEMIDE 10 MG/ML 2ML VIAL IV SCH (20:45)
[2020-03-02] MEDS ORDERED: METOPROLOL TARTRATE 25 MG TAB ONE (21:00)
[2020-03-02] MEDS: METOPROLOL TARTRATE 25 MG TAB PO SCH (21:00)
[2020-03-02] MEDS ORDERED: FUROSEMIDE 10 MG/ML 2ML VIAL ONE (21:01)
[2020-03-02] MEDS ORDERED: PROPOFOL 1000 MG/100 ML 100 ML IV ONE (23:24)
[2020-03-03] VITALS (25 sets, daily range): BP systolic 88–163; BP diastolic 54–104
[2020-03-03 00:52] LABS: ABG BASE EXCESS -14.3 mmol/L (-2.0-3.0); ABG HCO3 15.6 mmol/L (21.0-28.0); ABG PCO2 52 mmHg (35-48)
[2020-03-03] MEDS: PROPOFOL 1000 MG/100 ML 100 ML IV PRN ×4 (02:00→14:48)
[2020-03-03] MEDS: INSULIN HUMULIN R 100 UNIT/ML 3ML SQ SCH ×6 (02:50→23:46)
[2020-03-03] MEDS: SODIUM CHLORIDE 0.9% 1000ML 1,000 ML IV SCH ×6 (02:51→23:57)
[2020-03-03 03:36] LABS: BASOPHILS % (AUTO) 0.4 % (0.0-5.0); EOSINOPHILS % (AUTO) 0.2 % (0.0-8.0); HEMATOCRIT 48.1 % (42-54); LYMPHOCYTES % (AUTO) 3.1 % (21.0-51.0); MEAN CORPUSCULAR HEMOGLOBIN 26.8 pg (27.0-33.0); MEAN CORPUSCULAR HGB CONC 31.6 g/dL (32.0-36.0); MEAN CORPUSCULAR VOLUME 84.7 fL (79-99); MONOCYTES % (AUTO) 6.5 % (3.0-13.0); NUCLEATED RED BLOOD CELLS 0.3 % (0.0-0.19); PLATELET COUNT (AUTO) 192 K/uL (130-400); RED BLOOD CELL COUNT(AUTO) 5.68 MIL/uL (4.50-6.20); RED CELL DISTRIBUTION WIDTH 15.2 % (11.0-15.5)
[2020-03-03 03:41] LABS: WHITE BLOOD COUNT (AUTO) 31.2 K/uL (4.8-10.8)
[2020-03-03 03:47] LABS: CREATININE 2.3 mg/dL (0.5-1.5)
[2020-03-03 03:53] LABS: POTASSIUM 6.2 mmol/L (3.5-5.1)
[2020-03-03 04:23] LABS: ABG BASE EXCESS -14.1 mmol/L (-2.0-3.0); ABG HCO3 14.8 mmol/L (21.0-28.0); ABG OXYGEN SATURATION 96.4 % (95.0-99.0); ABG PCO2 46 mmHg (35-48)
[2020-03-03] MEDS ORDERED: SODIUM BICARB 50MEQ 50ML VIAL 150 ML ONE (04:43)
[2020-03-03] MEDS ORDERED: 1/2 NORMAL SALINE 1,000 ML IV ONE (04:44)
[2020-03-03] MEDS ORDERED: SODIUM BICARB 50MEQ 50ML VIAL 50 ML ONE (04:46)
[2020-03-03] MEDS ORDERED: ZOSYN 3.375GM+NS 50ML 50 ML IV ONE ×3 (05:00→13:00)
[2020-03-03] MEDS ORDERED: SODIUM BICARB 8.4% 50ML SYRINGE IVP ONE (05:00)
[2020-03-03] MEDS ORDERED: VANCOMYCIN PROTOCOL PER PHARMACY IV SCH (05:00)
[2020-03-03] MEDS ORDERED: SODIUM BICARB 8.4% 50ML SYRING 150 MEQ in SODIUM CHLORIDE 0.9% 1000ML 1,000 ML IVP SCH (05:00)
[2020-03-03] MEDS ORDERED: RENAL DOSE IV ONE (05:00)
[2020-03-03 06:27] LABS: BAND NEUTROPHILS % (MANUAL) 23 % (0-2); LYMPHOCYTES % (MANUAL) 1 % (22-44); MAN.DIFF COMMENT-IMPRESSION MANUAL DIFFERENTIAL; METAMYELOCYTES % 2 % (0-0); MONOCYTES % (MANUAL) 2 % (2-9); PLATELET MORPHOLOGY COMMENT ADEQUATE; REACTIVE LYMPHOCYTES 1 % (0-0); SEGMENTED NEUTROPHILS % 71 % (40-70)
[2020-03-03] MEDS ORDERED: VANCOMYCIN 2 GM in SODIUM CHLORIDE 0.9% 500ML 500 ML IV SCH ×2 (06:45→07:45)
[2020-03-03] MEDS ORDERED: FUROSEMIDE 10 MG/ML 2ML VIAL IV SCH (09:00)
[2020-03-03] MEDS ORDERED: LOSARTAN 50 MG TABLET PO SCH (09:00)
[2020-03-03 09:08] LABS: BASOPHILS % (AUTO) 0.3 % (0.0-5.0); EOSINOPHILS % (AUTO) 0.3 % (0.0-8.0); HEMATOCRIT 40.5 % (42-54); LYMPHOCYTES % (AUTO) 4.1 % (21.0-51.0); MEAN CORPUSCULAR HEMOGLOBIN 26.8 pg (27.0-33.0); MEAN CORPUSCULAR HGB CONC 32.8 g/dL (32.0-36.0); MEAN CORPUSCULAR VOLUME 81.5 fL (79-99); MONOCYTES % (AUTO) 4.4 % (3.0-13.0); NEUTROPHILS % (AUTO) 88.5 % (40.0-77.0); NUCLEATED RED BLOOD CELLS 0.4 % (0.0-0.19); PLATELET COUNT (AUTO) 94 K/uL (130-400); RED BLOOD CELL COUNT(AUTO) 4.97 MIL/uL (4.50-6.20); RED CELL DISTRIBUTION WIDTH 14.8 % (11.0-15.5); WHITE BLOOD COUNT (AUTO) 14.1 K/uL (4.8-10.8)
[2020-03-03] MEDS: CEFTRIAXONE SODIUM 1 GM IVP SCH (09:15)
[2020-03-03] MEDS: METOPROLOL TARTRATE 25 MG TAB PO SCH ×2 (09:16→21:00)
[2020-03-03] MEDS: FAMOTIDINE/PF 20 MG/2 ML VIAL IV SCH (09:16)
[2020-03-03] MEDS: DEXAMETHASONE SOD PHOSPHATE 4 MG/ML 1ML VIAL IVP SCH (09:16)
[2020-03-03] MEDS: ENOXAPARIN SODIUM 40 MG/0.4 ML SYRINGE SQ SCH (09:18)
[2020-03-03] MEDS: INSULIN GLARGINE 100 UNITS/ML 10 ML VIAL SQ SCH (09:21)
[2020-03-03 10:07] LABS: ALBUMIN 1.6 g/dL (3.5-5.0); BILIRUBIN,TOTAL 0.6 mg/dL (0.2-1.0); CREATININE 2.1 mg/dL (0.5-1.5); POTASSIUM 4.7 mmol/L (3.5-5.1); TOTAL PROTEIN, SERUM 5.1 g/dL (6.0-8.3)
[2020-03-03 10:46] LABS: ABG HCO3 18.6 mmol/L (21.0-28.0); ABG OXYGEN SATURATION 97.8 % (95.0-99.0); ABG PCO2 38 mmHg (35-48)
[2020-03-03] MEDS: DOXYCYCLINE 100MG+NS 250ML 250 ML IV SCH ×2 (11:23→22:23)
[2020-03-03] MEDS: 1/2 NORMAL SALINE IV SCH ×3 (11:58→20:39)
[2020-03-03] MEDS: SODIUM BICARB IV SCH ×3 (11:58→20:39)
[2020-03-03] MEDS: FENTANYL 2500MCG+NS 250ML 250 ML IV SCH (14:30)
[2020-03-03] MEDS: ZOSYN 3.375 GM IV SCH ×2 (15:41→23:44)
[2020-03-03] MEDS: [UNRECOGNIZED DRUG - OTHER] IV SCH ×2 (15:41→23:44)
[2020-03-04] VITALS (31 sets, daily range): BP systolic 107–169; BP diastolic 61–104
[2020-03-04] MEDS: NITROGLYCERIN 1GM/1 INCH PACKET TD SCH ×4 (00:53→23:28)
[2020-03-04] MEDS: METOPROLOL TARTRATE 25 MG TAB PO SCH ×3 (00:55→20:17)
[2020-03-04] MEDS: PROPOFOL 1000 MG/100 ML 100 ML IV PRN ×5 (01:00→20:39)
[2020-03-04] MEDS: SODIUM BICARB IV SCH ×3 (04:15→22:05)
[2020-03-04] MEDS: 1/2 NORMAL SALINE IV SCH ×3 (04:15→22:05)
[2020-03-04 05:00] LABS: HEMATOCRIT 40.3 % (42-54); MEAN CORPUSCULAR HEMOGLOBIN 26.9 pg (27.0-33.0); MEAN CORPUSCULAR HGB CONC 32.8 g/dL (32.0-36.0); MEAN CORPUSCULAR VOLUME 82.1 fL (79-99); NUCLEATED RED BLOOD CELLS 0.3 % (0.0-0.19); PLATELET COUNT (AUTO) 71 K/uL (130-400); RED BLOOD CELL COUNT(AUTO) 4.91 MIL/uL (4.50-6.20); RED CELL DISTRIBUTION WIDTH 15.2 % (11.0-15.5); WHITE BLOOD COUNT (AUTO) 17.5 K/uL (4.8-10.8)
[2020-03-04 05:31] LABS: ALBUMIN 1.7 g/dL (3.5-5.0); BILIRUBIN,TOTAL 0.7 mg/dL (0.2-1.0); CREATININE 3.7 mg/dL (0.5-1.5); MAGNESIUM 2.1 mg/dL (1.80-2.40); PHOSPHORUS 3.8 mg/dL (2.5-4.9); POTASSIUM 4.3 mmol/L (3.5-5.1); TOTAL PROTEIN, SERUM 5.1 g/dL (6.0-8.3)
[2020-03-04] MEDS: INSULIN HUMULIN R 100 UNIT/ML 3ML SQ SCH ×4 (06:39→23:31)
[2020-03-04] MEDS: ZOSYN 3.375 GM IV SCH ×3 (07:00→20:17)
[2020-03-04] MEDS: [UNRECOGNIZED DRUG - OTHER] IV SCH ×3 (07:00→20:17)
[2020-03-04 08:24] LABS: BAND NEUTROPHILS % (MANUAL) 8 % (0-2); MAN.DIFF COMMENT-IMPRESSION MANUAL DIFFERENTIAL; MONOCYTES % (MANUAL) 1 % (2-9); PLATELET MORPHOLOGY COMMENT DECREASED; SEGMENTED NEUTROPHILS % 91 % (40-70)
[2020-03-04] MEDS: ENOXAPARIN SODIUM 40 MG/0.4 ML SYRINGE SQ SCH (09:26)
[2020-03-04] MEDS: DEXAMETHASONE SOD PHOSPHATE 4 MG/ML 1ML VIAL IVP SCH (09:26)
[2020-03-04] MEDS: FAMOTIDINE/PF 20 MG/2 ML VIAL IV SCH (09:28)
[2020-03-04] MEDS: VANCOMYCIN 1GM+NS 250ML 250 ML IV SCH (09:28)
[2020-03-04] MEDS: INSULIN GLARGINE 100 UNITS/ML 10 ML VIAL SQ SCH (09:35)
[2020-03-04] MEDS: DOXYCYCLINE 100MG+NS 250ML 250 ML IV SCH ×2 (09:44→23:32)
[2020-03-04] MEDS: SODIUM CHLORIDE 0.9% 1000ML 1,000 ML IV SCH ×2 (12:06→22:15)
[2020-03-04] MEDS: FENTANYL 2500MCG+NS 250ML 250 ML IV SCH (14:36)
[2020-03-04] MEDS ORDERED: VANCOMYCIN 1.5 GM in SODIUM CHLORIDE 0.9% 250 ML IV SCH (18:00)
[2020-03-05] VITALS (36 sets, daily range): BP systolic 114–198; BP diastolic 60–114
[2020-03-05] MEDS: FENTANYL 2500MCG+NS 250ML 250 ML IV SCH (00:09)
[2020-03-05] MEDS: ACETAMINOPHEN 325 MG TAB PO PRN (00:15)
[2020-03-05] MEDS: PROPOFOL 1000 MG/100 ML 100 ML IV PRN ×5 (00:37→20:43)
[2020-03-05 04:50] LABS: BASOPHILS % (AUTO) 0.4 % (0.0-5.0); HEMATOCRIT 41.3 % (42-54); LYMPHOCYTES % (AUTO) 5.2 % (21.0-51.0); MEAN CORPUSCULAR HEMOGLOBIN 27.2 pg (27.0-33.0); MEAN CORPUSCULAR HGB CONC 32.7 g/dL (32.0-36.0); MEAN CORPUSCULAR VOLUME 83.3 fL (79-99); MONOCYTES % (AUTO) 4.5 % (3.0-13.0); NEUTROPHILS % (AUTO) 86.9 % (40.0-77.0); NUCLEATED RED BLOOD CELLS 0.3 % (0.0-0.19); PLATELET COUNT (AUTO) 98 K/uL (130-400); RED BLOOD CELL COUNT(AUTO) 4.96 MIL/uL (4.50-6.20); RED CELL DISTRIBUTION WIDTH 15.3 % (11.0-15.5); WHITE BLOOD COUNT (AUTO) 20.4 K/uL (4.8-10.8)
[2020-03-05 05:04] LABS: ALBUMIN 1.7 g/dL (3.5-5.0); BILIRUBIN,TOTAL 1.1 mg/dL (0.2-1.0); CREATININE 4.8 mg/dL (0.5-1.5); POTASSIUM 4.3 mmol/L (3.5-5.1); TOTAL PROTEIN, SERUM 5.1 g/dL (6.0-8.3)
[2020-03-05] MEDS: SODIUM BICARB IV SCH ×3 (05:45→12:58)
[2020-03-05] MEDS: 1/2 NORMAL SALINE IV SCH ×3 (05:45→12:58)
[2020-03-05] MEDS: INSULIN HUMULIN R 100 UNIT/ML 3ML SQ SCH ×3 (06:52→18:09)
[2020-03-05] MEDS: DEXAMETHASONE SOD PHOSPHATE 4 MG/ML 1ML VIAL IVP SCH (08:18)
[2020-03-05] MEDS: FAMOTIDINE/PF 20 MG/2 ML VIAL IV SCH (08:18)
[2020-03-05] MEDS: NITROGLYCERIN 1GM/1 INCH PACKET TD SCH ×2 (08:18→12:58)
[2020-03-05] MEDS: METOPROLOL TARTRATE 25 MG TAB PO SCH ×2 (08:18→20:41)
[2020-03-05] MEDS: ENOXAPARIN SODIUM 40 MG/0.4 ML SYRINGE SQ SCH (08:19)
[2020-03-05] MEDS: VANCOMYCIN 1GM+NS 250ML 250 ML IV SCH (08:19)
[2020-03-05] MEDS: [UNRECOGNIZED DRUG - OTHER] IV SCH ×2 (08:20→20:41)
[2020-03-05] MEDS: ZOSYN 3.375 GM IV SCH ×2 (08:20→20:41)
[2020-03-05] MEDS: INSULIN GLARGINE 100 UNITS/ML 10 ML VIAL SQ SCH (08:24)
[2020-03-05] MEDS ORDERED: NITROGLYCERIN 1GM/1 INCH PACKET TD SCH (11:00)
[2020-03-05] MEDS: DOXYCYCLINE 100MG+NS 250ML 250 ML IV SCH ×2 (11:07→23:20)
[2020-03-05 17:33] LABS: APPEARANCE,URINE CLOUDY (CLEAR); BILIRUBIN,URINE NEGATIVE (NEGATIVE); COLOR,URINE YELLOW (YELLOW); GLUCOSE, URINE (UA) NEGATIVE (NEGATIVE); KETONES,URINE NEGATIVE (NEGATIVE); LEUKOCYTE ESTERASE ,URINE NEGATIVE (NEGATIVE); NITRATE,URINE NEGATIVE (NEGATIVE); OCCULT BLOOD,URINE LARGE (NEGATIVE); PROTEIN,URINE 30 mg/dL (NEGATIVE); UROBILINOGEN,URINE 0.2 mg/dL (0.2-1.0)
[2020-03-05 17:51] LABS: RBC,URINE None Seen /HPF (0-1)
[2020-03-05 17:52] LABS: BACTERIA,URINE Rare /HPF (None Seen); SQUAMOUS EPITHELIAL CELL,UR None Seen /HPF (0-2); WBC,URINE 0-1 /HPF (0-1); YEAST,URINE BUDDING Moderate /HPF (None Seen)
[2020-03-06] VITALS (29 sets, daily range): BP systolic 105–195; BP diastolic 57–105
[2020-03-06] MEDS: INSULIN HUMULIN R 100 UNIT/ML 3ML SQ SCH ×4 (00:58→17:54)
[2020-03-06] MEDS: NITROGLYCERIN 1GM/1 INCH PACKET TD SCH ×2 (01:01→07:31)
[2020-03-06] MEDS: PROPOFOL 1000 MG/100 ML 100 ML IV PRN ×4 (01:23→21:18)
[2020-03-06] MEDS: FENTANYL 2500MCG+NS 250ML 250 ML IV SCH (01:24)
[2020-03-06 04:30] LABS: ABG BASE EXCESS -0.1 mmol/L (-2.0-3.0); ABG OXYGEN SATURATION 92.1 % (95.0-99.0); ABG PCO2 42 mmHg (35-48)
[2020-03-06 05:12] LABS: BASOPHILS % (AUTO) 0.3 % (0.0-5.0); HEMATOCRIT 39.7 % (42-54); LYMPHOCYTES % (AUTO) 4.5 % (21.0-51.0); MEAN CORPUSCULAR HEMOGLOBIN 27.3 pg (27.0-33.0); MEAN CORPUSCULAR VOLUME 85.2 fL (79-99); MONOCYTES % (AUTO) 5.7 % (3.0-13.0); NEUTROPHILS % (AUTO) 87.3 % (40.0-77.0); NUCLEATED RED BLOOD CELLS 0.2 % (0.0-0.19); PLATELET COUNT (AUTO) 69 K/uL (130-400); RED BLOOD CELL COUNT(AUTO) 4.66 MIL/uL (4.50-6.20); RED CELL DISTRIBUTION WIDTH 15.4 % (11.0-15.5); WHITE BLOOD COUNT (AUTO) 18.2 K/uL (4.8-10.8)
[2020-03-06 06:02] LABS: ALBUMIN 1.6 g/dL (3.5-5.0); BILIRUBIN,TOTAL 0.9 mg/dL (0.2-1.0); CREATININE 5.1 mg/dL (0.5-1.5); MAGNESIUM 2.2 mg/dL (1.80-2.40); PHOSPHORUS 6.7 mg/dL (2.5-4.9); POTASSIUM 4.7 mmol/L (3.5-5.1)
[2020-03-06] MEDS: SODIUM BICARB IV SCH (08:00)
[2020-03-06] MEDS: 1/2 NORMAL SALINE IV SCH (08:00)
[2020-03-06] MEDS: VANCOMYCIN 1GM+NS 250ML 250 ML IV SCH (08:17)
[2020-03-06] MEDS: DEXAMETHASONE SOD PHOSPHATE 4 MG/ML 1ML VIAL IVP SCH (08:19)
[2020-03-06] MEDS: THIAMINE HCL 100 MG/ML 2ML VIAL IVP SCH (08:19)
[2020-03-06] MEDS: METOPROLOL TARTRATE 25 MG TAB PO SCH ×2 (08:19→20:51)
[2020-03-06] MEDS: FAMOTIDINE/PF 20 MG/2 ML VIAL IV SCH (08:20)
[2020-03-06] MEDS: INSULIN GLARGINE 100 UNITS/ML 10 ML VIAL SQ SCH (08:24)
[2020-03-06] MEDS: ZOSYN 3.375 GM IV SCH ×2 (08:25→20:51)
[2020-03-06] MEDS: ENOXAPARIN SODIUM 40 MG/0.4 ML SYRINGE SQ SCH (08:25)
[2020-03-06] MEDS: [UNRECOGNIZED DRUG - OTHER] IV SCH ×2 (08:25→20:51)
[2020-03-06] MEDS: DOXYCYCLINE 100MG+NS 250ML 250 ML IV SCH ×2 (09:49→23:39)
[2020-03-06] MEDS: FLUCONAZOLE 400 MG/NS 200 ML 200 ML IV SCH (10:11)
[2020-03-06 12:44] LABS: INR 1.47 (0.85-1.15); PROTHROMBIN TIME 15.2 SEC (9.6-11.6)
[2020-03-06] MEDS ORDERED: DOPAMINE HCL 400 MG/D5%-WATER 250 ML IV SCH (15:30)
[2020-03-07] VITALS (36 sets, daily range): BP systolic 96–187; BP diastolic 5–102
[2020-03-07] MEDS: INSULIN HUMULIN R 100 UNIT/ML 3ML SQ SCH ×4 (00:45→17:59)
[2020-03-07] MEDS: PROPOFOL 1000 MG/100 ML 100 ML IV PRN ×5 (01:47→22:25)
[2020-03-07] MEDS: FENTANYL 2500MCG+NS 250ML 250 ML IV SCH (02:07)
[2020-03-07 04:44] LABS: BASOPHILS % (AUTO) 0.2 % (0.0-5.0); LYMPHOCYTES % (AUTO) 3.7 % (21.0-51.0); MEAN CORPUSCULAR HEMOGLOBIN 27.1 pg (27.0-33.0); MEAN CORPUSCULAR HGB CONC 31.4 g/dL (32.0-36.0); MEAN CORPUSCULAR VOLUME 86.2 fL (79-99); MONOCYTES % (AUTO) 6.5 % (3.0-13.0); NEUTROPHILS % (AUTO) 87.3 % (40.0-77.0); NUCLEATED RED BLOOD CELLS 0.2 % (0.0-0.19); PLATELET COUNT (AUTO) 66 K/uL (130-400); RED BLOOD CELL COUNT(AUTO) 4.87 MIL/uL (4.50-6.20); RED CELL DISTRIBUTION WIDTH 15.7 % (11.0-15.5); WHITE BLOOD COUNT (AUTO) 18.6 K/uL (4.8-10.8)
[2020-03-07 05:19] LABS: ALBUMIN 1.6 g/dL (3.5-5.0); CREATININE 4.8 mg/dL (0.5-1.5); MAGNESIUM 2.3 mg/dL (1.80-2.40); PHOSPHORUS 7.3 mg/dL (2.5-4.9); TOTAL PROTEIN, SERUM 5.5 g/dL (6.0-8.3)
[2020-03-07] MEDS: THIAMINE HCL 100 MG/ML 2ML VIAL IVP SCH (08:35)
[2020-03-07] MEDS: FAMOTIDINE/PF 20 MG/2 ML VIAL IV SCH (08:35)
[2020-03-07] MEDS: ZOSYN 3.375 GM IV SCH ×2 (08:35→20:15)
[2020-03-07] MEDS: [UNRECOGNIZED DRUG - OTHER] IV SCH ×2 (08:35→20:15)
[2020-03-07] MEDS: METOPROLOL TARTRATE 25 MG TAB PO SCH ×2 (08:35→20:15)
[2020-03-07] MEDS: DEXAMETHASONE SOD PHOSPHATE 4 MG/ML 1ML VIAL IVP SCH (08:35)
[2020-03-07] MEDS: INSULIN GLARGINE 100 UNITS/ML 10 ML VIAL SQ SCH (08:37)
[2020-03-07] MEDS: ENOXAPARIN SODIUM 40 MG/0.4 ML SYRINGE SQ SCH (09:00)
[2020-03-07] MEDS: DOXYCYCLINE 100MG+NS 250ML 250 ML IV SCH ×2 (09:49→22:27)
[2020-03-07] MEDS: FLUCONAZOLE 400 MG/NS 200 ML 200 ML IV SCH (10:03)
[2020-03-07] MEDS: ACETAMINOPHEN 325 MG TAB PO PRN (23:45)
[2020-03-08] VITALS (38 sets, daily range): BP systolic 103–183; BP diastolic 63–98
[2020-03-08] MEDS: INSULIN HUMULIN R 100 UNIT/ML 3ML SQ SCH ×5 (00:55→23:59)
[2020-03-08] MEDS: FENTANYL 2500MCG+NS 250ML 250 ML IV SCH ×2 (01:10→12:26)
[2020-03-08] MEDS: PROPOFOL 1000 MG/100 ML 100 ML IV PRN ×5 (02:48→21:25)
[2020-03-08 05:01] LABS: BASOPHILS % (AUTO) 0.2 % (0.0-5.0); HEMATOCRIT 43.3 % (42-54); LYMPHOCYTES % (AUTO) 4.5 % (21.0-51.0); MEAN CORPUSCULAR HEMOGLOBIN 26.7 pg (27.0-33.0); MEAN CORPUSCULAR HGB CONC 30.9 g/dL (32.0-36.0); MEAN CORPUSCULAR VOLUME 86.4 fL (79-99); MONOCYTES % (AUTO) 5.2 % (3.0-13.0); NUCLEATED RED BLOOD CELLS 0.3 % (0.0-0.19); PLATELET COUNT (AUTO) 104 K/uL (130-400); RED BLOOD CELL COUNT(AUTO) 5.01 MIL/uL (4.50-6.20); RED CELL DISTRIBUTION WIDTH 16.4 % (11.0-15.5); WHITE BLOOD COUNT (AUTO) 25.7 K/uL (4.8-10.8)
[2020-03-08 05:41] LABS: ALBUMIN 1.7 g/dL (3.5-5.0); BILIRUBIN,TOTAL 1.2 mg/dL (0.2-1.0); CREATININE 5.3 mg/dL (0.5-1.5); POTASSIUM 5.7 mmol/L (3.5-5.1)
[2020-03-08] MEDS: METOPROLOL TARTRATE 25 MG TAB PO SCH ×2 (08:42→20:58)
[2020-03-08] MEDS: FAMOTIDINE/PF 20 MG/2 ML VIAL IV SCH (08:43)
[2020-03-08] MEDS: DEXAMETHASONE SOD PHOSPHATE 4 MG/ML 1ML VIAL IVP SCH (08:43)
[2020-03-08] MEDS: THIAMINE HCL 100 MG/ML 2ML VIAL IVP SCH (08:43)
[2020-03-08] MEDS: ENOXAPARIN SODIUM 40 MG/0.4 ML SYRINGE SQ SCH (08:43)
[2020-03-08] MEDS: ZOSYN 3.375 GM IV SCH ×2 (08:44→20:58)
[2020-03-08] MEDS: [UNRECOGNIZED DRUG - OTHER] IV SCH ×2 (08:44→20:58)
[2020-03-08] MEDS: INSULIN GLARGINE 100 UNITS/ML 10 ML VIAL SQ SCH (08:46)
[2020-03-08] MEDS: FLUCONAZOLE 400 MG/NS 200 ML 200 ML IV SCH (10:41)
[2020-03-08] MEDS: DOXYCYCLINE 100MG+NS 250ML 250 ML IV SCH ×2 (10:50→23:40)
[2020-03-09] VITALS (8 sets, daily range): BP systolic 102–123; BP diastolic 59–70
[2020-03-09] MEDS: PROPOFOL 1000 MG/100 ML 100 ML IV PRN ×2 (01:32→06:04)
[2020-03-09] MEDS: INSULIN HUMULIN R 100 UNIT/ML 3ML SQ SCH (06:54)
[2020-03-09] MEDS: DEXAMETHASONE SOD PHOSPHATE 4 MG/ML 1ML VIAL IVP SCH (08:16)
[2020-03-09] MEDS: THIAMINE HCL 100 MG/ML 2ML VIAL IVP SCH (08:17)
[2020-03-09] MEDS: FAMOTIDINE/PF 20 MG/2 ML VIAL IV SCH (08:17)
[2020-03-09] MEDS: METOPROLOL TARTRATE 25 MG TAB PO SCH (08:17)
[2020-03-09] MEDS: [UNRECOGNIZED DRUG - OTHER] IV SCH (08:18)
[2020-03-09] MEDS: ZOSYN 3.375 GM IV SCH (08:18)
[2020-03-09] MEDS: INSULIN GLARGINE 100 UNITS/ML 10 ML VIAL SQ SCH (08:21)
[2020-03-09 08:53] LABS: HEMATOCRIT 37.2 % (42-54); MEAN CORPUSCULAR HEMOGLOBIN 26.6 pg (27.0-33.0); MEAN CORPUSCULAR HGB CONC 29.8 g/dL (32.0-36.0); MEAN CORPUSCULAR VOLUME 89.2 fL (79-99); RED BLOOD CELL COUNT(AUTO) 4.17 MIL/uL (4.50-6.20); RED CELL DISTRIBUTION WIDTH 16.5 % (11.0-15.5); WHITE BLOOD COUNT (AUTO) 20.9 K/uL (4.8-10.8)
[2020-03-09 09:07] LABS: INR 1.25 (0.85-1.15); PROTHROMBIN TIME 13.1 SEC (9.6-11.6)
[2020-03-09 09:14] LABS: CREATININE 7.6 mg/dL (0.5-1.5)
[2020-03-09 09:20] LABS: POTASSIUM 6.8 mmol/L (3.5-5.1)
[2020-03-09] MEDS: ENOXAPARIN SODIUM 40 MG/0.4 ML SYRINGE SQ SCH (09:25)
[2020-03-09] MEDS: FLUCONAZOLE 400 MG/NS 200 ML 200 ML IV SCH (09:44)
[2020-03-09] MEDS ORDERED: LORAZEPAM 2 MG/ML 1 ML VIAL IM PRN (10:00)
[2020-03-09] MEDS ORDERED: MORPHINE SULFATE 2 MG/ML 1ML SYG IVP PRN (10:00)
== END 2020-03-09 10:40 | disposition expired | DRG 207 ==
LOC: EDH 12:28 → EDHIP 14:02 → 2CV 03-03 02:00
PROVIDERS: ADMIT Internal Medicine; ATTEND Internal Medicine
PROC: 5A0935A Assistance with Respiratory Ventilation, Less than 24 Consecutive Hours, High Flow/Velocity Cannula (ICD-10-PCS; 2020-03-02)
PROC: 5A09357 Assistance with Respiratory Ventilation, Less than 24 Consecutive Hours, Continuous Positive Airway Pressure (ICD-10-PCS; 2020-03-02)
PROC: 5A1955Z Respiratory Ventilation, Greater than 96 Consecutive Hours (ICD-10-PCS; principal; 2020-03-03)
PROC: 0BH17EZ Insertion of Endotracheal Airway into Trachea, Via Natural or Artificial Opening (ICD-10-PCS; 2020-03-03)
PROC: 02HV33Z Insertion of Infusion Device into Superior Vena Cava, Percutaneous Approach (ICD-10-PCS; 2020-03-06)
PROC: B548ZZA Ultrasonography of Superior Vena Cava, Guidance (ICD-10-PCS; 2020-03-06)
DX: U07.1 COVID-19 (principal); J12.82 Pneumonia due to coronavirus disease 2019; A41.9 Sepsis, unspecified organism; J96.01 Acute respiratory failure with hypoxia; E87.1 Hypo-osmolality and hyponatremia; D68.59 Other primary thrombophilia; E87.0 Hyperosmolality and hypernatremia; I82.A12 Acute embolism and thrombosis of left axillary vein; I82.622 Acute embolism and thrombosis of deep veins of left upper extremity; N17.9 Acute kidney failure, unspecified; Z66 Do not resuscitate; I25.10 Atherosclerotic heart disease of native coronary artery without angina pectoris; I12.9 Hypertensive chronic kidney disease with stage 1 through stage 4 chronic kidney disease, or unspecified chronic kidney disease; D69.6 Thrombocytopenia, unspecified; B37.9 Candidiasis, unspecified; E11.22 Type 2 diabetes mellitus with diabetic chronic kidney disease; E66.9 Obesity, unspecified; E11.65 Type 2 diabetes mellitus with hyperglycemia; E78.5 Hyperlipidemia, unspecified; E87.5 Hyperkalemia; E88.09 Other disorders of plasma-protein metabolism, not elsewhere classified; F17.200 Nicotine dependence, unspecified, uncomplicated; G89.29 Other chronic pain; N18.9 Chronic kidney disease, unspecified; Z96.659 Presence of unspecified artificial knee joint; M54.9 Dorsalgia, unspecified; D64.9 Anemia, unspecified; R53.81 Other malaise; Z79.84 Long term (current) use of oral hypoglycemic drugs; Z95.2 Presence of prosthetic heart valve; Z90.49 Acquired absence of other specified parts of digestive tract; Z68.36 Body mass index [BMI] 36.0-36.9, adult
CPT/HCPCS: 31500; 36415; 36600; 71045; 76770; 80048; 80053; 80061; 81001; 82550; 82728; 82803; 82948; 83605; 83615; 83735; 83874; 84100; 84132; 84145; 84484; 85025; 85027; 85378; 85610; 85730; 86140; 86900; 86901; 87040; 87071; 87088; 87205; 87426; 87804; 93005; 93931; 93970; 93971; 94002; 94003; 94660; C1751; C1894; G0378; J0456; J0696; J1100; J1450; J1650; J1815; J1940; J2060; J2543; J2704; J3010; J3370; J3411; J3490; J7030; J7040; U0003